=== PATIENT | male | born 1960 | race Caucasian/White ===

== ENCOUNTER 2017-05-07 02:43 | Emergency (ER) | payer OTHER ==
[~2017-05-07] VITALS: Ht 180.3 cm; Wt 55.0 kg
[~2017-05-07 02:43] MED LIST: CYCL5TAB PO; IBUP-238 PO; Z.0.NO CURRENT MEDS
[2017-05-07 03:10] VITALS: BP 119/74; PULSE 69; RESP 16; TEMP 98; O2SAT 98
[2017-05-07] MEDS ORDERED: METOCLOPRAMIDE HCL 10 MG/2 ML VIAL IV PUSH ONE (03:45)
[2017-05-07] MEDS ORDERED: SODIUM CHLOR 0.9% 1000 ML INJ 1,000 ML IV ONE (03:45)
[2017-05-07] MEDS ORDERED: KETOROLAC TROMETHAMINE 30 MG/ML (IVP) VIAL IV PUSH ONE (03:45)
[2017-05-07] MEDS ORDERED: diphenhydrAMINE HCL 50 MG/ML VIAL IV PUSH ONE (03:45)
--- NOTE | 2017-05-07 04:09 | PD ---
HPI Chief Complaint: Cold / Flu Symptoms Time Seen by Provider: 04:04 Travel History International Travel<30 days: No Contact w/Intl Traveler<30days: No Traveled to known affect area: No History of Present Illness HPI 56-year-old white male presents to emergency department accompanied by his partner for evaluation of intermittent fever and chills for nearly 3 weeks. In addition to his subjective fever and chills he has had sore throat, ear pain, nonproductive cough, nausea and decreased appetite, upset stomach, general weakness and malaise as well as decreased energy. He denies any vomiting. He does have intermittent loose stools. He denies any hematemesis or melena. Patient denies any history of chronic medical problems. He denies asthma, COPD , HIV, liver disease. He denies any recent weight gain or weight loss. His last HIV test was over 10 years ago. The patient's partner is HIV positive but they state they practice safe sex. PFSH Past Medical History Medical History: Denies Significant Hx Tetanus Vaccination: > 5 Years Influenza Vaccination: No Past Surgical History Narrative Surgical Tonsillectomy Social History Alcohol Use: Yes (1 DRINK DAILY) Tobacco Use: Yes (1.5 PACKS PER DAY) Substance Use: Yes (MARIJUANA) Allergies-Medications (Allergen,Severity, Reaction): Coded Allergies: No Known Allergies (Verified , 05/07/17) Reported Meds & Prescriptions Reported Meds & Active Scripts Active Motrin (Ibuprofen) 800 Mg Tab 800 Mg PO Q8 Flexeril (Cyclobenzaprine HCl) 5 Mg Tab 5-10 Mg PO Q8HPRN 14 Days Reported No Current Meds (Miscellaneous Medication) [facility] [place] of Systems Except as stated in HPI: all other systems reviewed are Neg Physical Exam Narrative GENERAL: Well-developed, well-nourished in no apparent distress. Nontoxic but appears chronically ill HEAD: Normocephalic, atraumatic. EYES: Pupils equal round and reactive. Extraocular motions intact. No scleral icterus. No injection or drainage. ENT: Nose clear. Throat without erythema, or exudate. Uvula midline. Airway patent. NECK: Trachea midline. Supple, nontender, moves head freely. No central bony tenderness or spasm. CARDIOVASCULAR: Regular rate and rhythm without murmurs, gallops, or rubs. RESPIRATORY: Clear to auscultation. Breath sounds equal bilaterally but has a prolonged expiratory phase consistent with COPD. No wheezes, rales, or rhonchi. GASTROINTESTINAL: Abdomen soft, non-tender, nondistended. No hepato-splenomegaly , or palpable masses. No guarding. EXTREMITIES: No clubbing, cyanosis, or edema. No joint tenderness. BACK: Nontender without deformity. No flank tenderness. NEUROLOGICAL: Awake, alert and oriented x 3 .Cranial nerves grossly intact. Motor and sensory grossly within normal limits. Normal speech. Data Data Last Documented VS Vital Signs Date Time Temp Pulse Resp B/P Pulse Ox O2 Delivery O2 Flow Rate FiO2 05/07/17 03:10 98.0 69 16 119/74 98 Room Air Orders Complete Blood Count With Diff (05/07/17 03:33) Comprehensive Metabolic Panel (05/07/17 03:33) Group A Rapid Strep Screen (05/07/17 03:33) Chest, Pa & Lat (05/07/17 03:33) Iv Access Insert/Monitor (05/07/17 03:33) Ketorolac Inj (Toradol Inj) (05/07/17 03:45) Sodium Chlor 0.9% 1000 Ml Inj (Ns 1000 M (05/07/17 03:45) Diphenhydramine Inj (Benadryl Inj) (05/07/17 03:45) Metoclopramide Inj (Reglan Inj) (05/07/17 03:45) Strep Culture (Group A) (05/07/17 04:00) Labs Laboratory Tests Test 05/07/17 04:00 White Blood Count 10.7 TH/MM3 Red Blood Count 4.55 MIL/MM3 Hemoglobin 13.7 GM/DL Hematocrit 40.3 % Mean Corpuscular Volume 88.5 FL Mean Corpuscular Hemoglobin 30.0 PG Mean Corpuscular Hemoglobin 33.9 % Concent Red Cell Distribution Width 13.2 % Platelet Count 284 TH/MM3 Mean Platelet Volume 7.8 FL Neutrophils (%) (Auto) 73.9 % Lymphocytes (%) (Auto) 16.3 % Monocytes (%) (Auto) 6.5 % Eosinophils (%) (Auto) 2.3 % Basophils (%) (Auto) 1.0 % Neutrophils # (Auto) 7.9 TH/MM3 Lymphocytes # (Auto) 1.7 TH/MM3 Monocytes # (Auto) 0.7 TH/MM3 Eosinophils # (Auto) 0.2 TH/MM3 Basophils # (Auto) 0.1 TH/MM3 CBC Comment DIFF FINAL Differential Comment Sodium Level 142 MEQ/L Potassium Level 3.5 MEQ/L Chloride Level 112 MEQ/L Carbon Dioxide Level 22.3 MEQ/L Anion Gap 8 MEQ/L Blood Urea Nitrogen 18 MG/DL Creatinine 1.05 MG/DL Estimat Glomerular Filtration 74 ML/MIN Rate Random Glucose 103 MG/DL Calcium Level 8.4 MG/DL Total Bilirubin 0.5 MG/DL Aspartate Amino Transf 19 U/L (AST/SGOT) Alanine Aminotransferase 17 U/L (ALT/SGPT) Alkaline Phosphatase 85 U/L Total Protein 6.5 GM/DL Albumin 3.1 GM/DL MDM Medical Decision Making Medical Screen Exam Complete: Yes Emergency Medical Condition: Yes Medical Record Reviewed: Yes Interpretation(s) CBC & BMP Diagram 05/07/17 04:00 Rapid strep negative Last 24 hours Impressions Chest X-Ray 05/07/17 0333 Signed Impressions: Service Date/Time: Sunday, May 07, 2017 03:52 - CONCLUSION: Hyperinflation which can be seen with COPD. No acute cardiopulmonary disease and no evidence for an infiltrate. Shemar Diaz MD Differential Diagnosis Differential diagnoses: Strep throat, viral process, HIV, electrolyte abnormality, dehydration, pneumonia, bronchitis Narrative Course IV access is obtained. Patient's given Toradol 30 mg IV, Benadryl 25 mg IV, and Reglan 10 mg IV. 1 L bolus of normal saline. Routine laboratory tests including CBC, chemistry, rapid strep and chest x-ray. Chest x-ray shows no acute pulmonary process. He does have some COPD changes. Patient is having improvement of his symptoms. His laboratory tests are unremarkable this time. He is encouraged to have an outpatient HIV test. The patient's consider medically stable on discharge. He agrees with treatment plan and follow-up. This is acute febrile illness Diagnosis Primary Impression: Acute febrile illness Patient Instructions: General Instructions Additional Instructions: Rest. Increase fluids. Tylenol and Advil. Follow-up with the [facility] and have a confidential HIV test. Follow-up with a primary care doctor in the next 3-5 days. Return to the ER for emergencies. Med/Other Pt SpecificInfo: No Meds Exist/No RX given Disposition: 01 DISCHARGE HOME Condition: Stable Chaz Sterling May 07, 2017 04:09
[2017-05-07 04:10] LABS: AUTOMATED NEUTROPHIL # 7.9 TH/MM3 (1.8-7.7); BASOPHIL # 0.1 TH/MM3 (0-0.2); EOSINOPHIL # 0.2 TH/MM3 (0-0.4); EOSINOPHIL % 2.3 % (0.0-4.0); HEMATOCRIT 40.3 % (39.0-51.0); HEMO FLAGS DIFF FINAL; LYMPH % 16.3 % (9.0-44.0); LYMPHOCYTE # 1.7 TH/MM3 (1.0-4.8); MEAN CELL VOLUME 88.5 FL (80.0-100.0); MEAN CORPUSCULAR HGB CONC 33.9 % (32.0-36.0); MONO % 6.5 % (0.0-8.0); NEUT % 73.9 % (16.0-70.0); PLATELET COUNT 284 TH/MM3 (150-450); RED BLOOD COUNT 4.55 MIL/MM3 (4.50-5.90); RED CELL DISTRIBUTION WIDTH 13.2 % (11.6-17.2); WHITE BLOOD COUNT 10.7 TH/MM3 (4.0-11.0)
--- NOTE | 2017-05-07 04:26 | RADRPT ---
EXAM DATE/TIME: 05/07/2017 03:52 [facility] COMPARISON: No previous studies available for comparison. INDICATIONS : Cough x 3 weeks MEDICAL HISTORY : None. SURGICAL HISTORY : None. ENCOUNTER: Initial ACUITY: 3 weeks PAIN SCORE: 7/10 LOCATION: Bilateral chest FINDINGS: PA and lateral views of the chest demonstrates hyperinflation which can be seen with CO PD. No infiltrates are seen. Heart is normal in size. The mediastinal contours are unremarkable. O sseous structures are intact. CONCLUSION: Hyperinflation which can be seen with COPD. No acute cardiopulmonary disease an d no evidence for an infiltrate. Shemar Diaz MD on May 07, 2017 at 4:24 Board Certified Radiologist. This report was verified electronically.
[2017-05-07 04:30] LABS: ALT (GPT) 17 U/L (12-78); ANION GAP 8 MEQ/L (5-15); AST (GOT) 19 U/L (15-37); BICARBONATE 22.3 MEQ/L (21.0-32.0); BLOOD UREA NITROGEN 18 MG/DL (7-18); CHLORIDE 112 MEQ/L (98-107); GLOMERULAR FILTRATION RATE 74 ML/MIN (>89); POTASSIUM 3.5 MEQ/L (3.5-5.1); SODIUM (NA) 142 MEQ/L (136-145)
[2017-05-07 04:31] LABS: ALKALINE PHOSPHATASE 85 U/L (45-117); TOTAL BILIRUBIN ADULT 0.5 MG/DL (0.2-1.0)
[2017-05-07 05:02] VITALS: BP 104/66
== END 2017-05-07 05:03 | disposition home or self-care (01) ==
LOC: NEPD 02:43
DX: R50.9 Fever, unspecified (principal); J44.9 Chronic obstructive pulmonary disease, unspecified; F17.210 Nicotine dependence, cigarettes, uncomplicated; F12.10 Cannabis abuse, uncomplicated; Z71.7 Human immunodeficiency virus [HIV] counseling
CPT/HCPCS: 71020; 80053; 85025; 87081; 87880; 96374; 96375; 99284; J1200; J1885; J2765; J7030